=== PATIENT | female | born 1945 | race Caucasian/White ===

== ENCOUNTER 2023-01-13 10:08 | Outpatient (CLI) | payer MEDICARE, BC, SELFPAY ==
--- NOTE | 2023-01-13 10:30 | CRLHL7_ITS ---
For Patients: As a result of the Century Cures Act, medical imaging exams and procedure reports are released immediately into your electronic medical record. You may view this report before your referring provider. If you have questions, please contact your health care provider. INDICATION: LEFT CALF PAIN, LEFT KNEE PAIN COMPARISON: None. TECHNIQUE: A compression venous ultrasound exam was performed of the left lower extremity using goldsmith-scale imaging, color Doppler and spectral Doppler analysis. FINDINGS: Sonographic imaging of the left lower extremity demonstrates normal compressibility and color Doppler venous blood flow within the common femoral vein, deep femoral vein, and the proximal greater saphenous vein. Within the thigh, the femoral vein is patent and compressible. At a lower level, the popliteal and posterior tibial veins also show normal compressibility and color Doppler venous blood flow. Limited imaging of the contralateral groin demonstrates a normal spectral waveform and color Doppler venous blood flow within the right common femoral vein. IMPRESSION: Normal venous ultrasound exam. No evidence of deep vein thrombosis within the left lower extremity. Dictated by Uche Gann MD @ 01/13/2023 11:24:51 AM (Electronically Signed)
== END 2023-01-13 10:09 | disposition home or self-care (01) ==
LOC: US 10:12
PROVIDERS: PCP Nurse Practitioner Family; Visit Provider Physician Assistant
DX: M79.605 Pain in left leg; M25.562 Pain in left knee
CPT/HCPCS: 93926; 93971

== ENCOUNTER 2025-08-08 10:39 | Day surgery (SDC) | payer MEDICARE, BC, SELFPAY ==
[2025-08-08] VITALS (24 sets, daily range): BP systolic 96–153; BP diastolic 60–90; PULSE 61–90; RESP 13–18; TEMP 35.7–36.8; O2SAT 93–100; BMI 35.8
[2025-08-08] MEDS: LACTATED RINGERS 1000 ML 1,000 ML 100 ML IV ×3 (10:50→16:45)
[2025-08-08] MEDS: OXYCODONE (CR) 10 MG TAB.ER.12H PO (11:05)
[2025-08-08] MEDS: CELECOXIB 200 MG CAPSULE PO (11:05)
[2025-08-08] MEDS: ACETAMINOPHEN 500 MG TABLET 1000 MG PO ×2 (11:05→20:56)
[2025-08-08] MEDS: SODIUM CHLORIDE 0.9 % (FLUSH) 10 ML SYRINGE IVF (11:23)
--- NOTE | 2025-08-08 13:00 | CRLHL7_ITS ---
For Patients: As a result of the Cures Act, medical imaging exams and procedure reports are released immediately into your electronic medical record. You may view this report before your referring provider. If you have questions, please contact your health care provider. Indication: Hip replacement surgery Technique: AP hip fluoroscopic images. Fluoroscopy time 94.3 seconds. Findings/Impression: Hardware from a right total hip arthroplasty is in satisfactory position. Dictated by Uche Gann MD @ 08/09/2025 9:48:56 AM (Electronically Signed)
[2025-08-08] MEDS: MIDAZOLAM HCL 1 MG/ML inj IVP (13:10)
--- NOTE | 2025-08-08 13:18 | SUR.PREOP ---
TIME?OUT:?1310 PT/en dave RN/marcel humphries MDA?VERIFICATION?OF?SURGICAL?SITE,?PROCEDURE,?AND?CONSENT OBTAINED?PRIOR?TO?INVASIVE?PROCEDURE.
[2025-08-08] MEDS: TRANEXAMIC ACID 100 MG/ML INJ 1000 MG IV (14:40)
--- NOTE | 2025-08-08 14:51 | W.PM.NB ---
Nerve Block Nerve Block Time Seen by Provider: 13:10 Date Seen: 08/08/25 Side: right
--- NOTE | 2025-08-08 16:08 | CRLHL7_ITS ---
For Patients: As a result of the Cures Act, medical imaging exams and procedure reports are released immediately into your electronic medical record. You may view this report before your referring provider. If you have questions, please contact your health care provider. Indication: Postop right total hip arthroplasty. Technique: Right hip 2 views. Comparison: None. Findings/Impression: Bones/joint spaces: Interval placement of total right hip arthroplasty. No immediate hardware related complication. No inappropriate foreign bodies. Expected immediate postoperative intra-articular and periarticular emphysema and surrounding soft tissue swelling. Intact total left hip arthroplasty. No periprosthetic or additional fractures. No worrisome osseous lesions. Soft tissues: See above Other: Intrapelvic structures are normal. Dictated by Curt Garcia MD @ 08/15/2025 9:21:32 AM (Electronically Signed)
--- NOTE | 2025-08-08 16:11 | PM.ORPRC ---
Procedure Note Date of procedure: 08/08/25 Procedure: PREOPERATIVE DIAGNOSIS: Right hip osteoarthritis POSTOPERATIVE DIAGNOSIS: Right hip osteoarthritis NAME OF OPERATION: Right total hip arthroplasty SURGEON: Shad Mayen MD EMPLOYEE BENEFITS SPECIALIST: Renate Hernandez PA-C, JENNIFER Melo IMPLANTS: 1. J&J Walker # 48 sector ingrowth cup 2. 32 x 48 +4 neutral polyethylene 3. Actis #5 standard collared ingrowth stem 4. 32 + 5 cobalt chrome femoral head ANESTHESIA: Spinal ESTIMATED BLOOD LOSS: 500 cc COMPLICATIONS: None SPECIMENS: None DRAINS: None PREOPERATIVE ANTIBIOTICS: Ancef 2 g INDICATIONS: The patient is a 80-year-old with a longstanding history of severe, unrelenting right hip pain secondary to end-stage right hip osteoarthritis. Despite appropriate nonoperative management, including activity modification, use of an assist device, anti-inflammatories, [id number] pain medication, physical therapy and injections, they continue to have pain and disability. Operative intervention was offered. The risks, benefits and expected outcomes were discussed in detail. These included but were not limited to: Infection, bleeding, injury to blood vessel or nerve, venous thromboembolism. All questions were answered to their satisfaction. Use of an printer floor covering assistant was necessary throughout the case for patient positioning and safety, soft tissue retraction and closure. PROCEDURE: The patient was placed supine on the [place] table. Spinal anesthesia was administered. The printer floor covering assistant made sure the patient was properly positioned. The right hip was prepped and draped in the usual sterile fashion. The image intensifier was brought in for a perfect AP pelvis and a perfect double tear drop AP view of each hip which were used for intraoperative templating with our fluoroscopic guide. A bikini incision was made parallel to the hip flexion crease. The printer floor covering assistant retracted the soft tissues to protect them. Subcutaneous dissection was taken with electrocautery to the superficial fascia. The fascia was divided in line with the incision. Blunt dissection was carried medially to the tensor fascia peter and sartorius interval. Deep dissection was carried with electrocautery. The circumflex vessels were cauterized and divided. The capsule was exposed and then divided in a T-fashion, tagged with #1 FiberWire sutures. Retractors were placed in the joint, held by the printer floor covering assistant. The corkscrew was placed in the femoral head. The neck cut was made in the subcapital region. We made a second neck cut more distal. The napkin ring of bone was removed. The femoral head was removed intact. Acetabular retractors were placed, held by the printer floor covering assistant. The labrum was sharply debrided. The capsule was released. The 43 mm reamer was used to the true medial wall. We then enlarged in 2 mm increments using the image intensifier for our reamer placement. We impacted the cup which had excellent purchase. We placed the polyethylene. Attention was then turned to the proximal femur. The limb was placed in 140 degrees of external rotation, maximum extension and adduction. The capsule was released to allow us to deliver the femur into the wound and complete the femoral side. Retractors were held by the printer floor covering assistant throughout the femoral preparation. The hand box folder and canal finder were used. Broaches were used to a stable size. The calcar reamer was used. Trial components were placed. The hip was reduced and was found to be stable with appropriate soft tissue tension. Length and offset had been nicely restored using the image intensifier and our fluoroscopic guide. Trial components were removed. The stem was impacted. We placed the femoral head. Again, the hip was reduced and was found to be stable with appropriate soft tissue tension. Length and offset had been nicely restored. The printer floor covering assistant did a three minute dilute Betadine solution soak. The printer floor covering assistant irrigated the wound with 3 liters of normal saline via pulse lavage. The printer floor covering assistant repaired the anterior capsule with a #1 Vicryl and our previously placed Ethibond sutures. The printer floor covering assistant closed the fascia over the tensor fascia peter with a #1 PDO Stratafix, subcutaneous tissues with 2-0 Vicryl, skin with a running 3-0 Stratafix and glue. A dry dressing was applied by the printer floor covering assistant. Sponge and needle counts were correct x 2. The patient tolerated the procedure well; there were no apparent complications. They were awakened and extubated in the operating room, sent to the Post-Anesthesia Care Unit in satisfactory condition. PLAN: 1. The patient will be mobilized with physical therapy, weight-bearing as tolerates 2. Xarelto x 5 days then aspirin x 30 days will be used for DVT prophylaxis 3. The patient will be discharged once medically appropriate
--- NOTE | 2025-08-08 16:17 | PM.IMCN1 ---
Date of Consult Consult date: 08/08/25 Requesting Physician: Orthopedics Primary Care Provider: Claudia Roper PA-C Consult Narrative Narrative: HOSPITALIST CONSULT Procedure: Right total hip arthroplasty SURGEON: Shad Mayen MD ANESTHESIA: Spinal ESTIMATED BLOOD LOSS: 500 cc COMPLICATIONS: None SPECIMENS: None DRAINS: None The hospital medicine team was asked by the orthopedic surgery team to manage the patient's chronic pain; severe post op nausea/dizziness. She did not arrive from PACU until after 6 pm. There have been no perioperative complications other than her persistent nausea/dizziness. I have updated and reviewed the active medical problems, past medical history, past surgical history, social history, allergies and medications in our electronic EMR. This includes a cross reference to care everywhere in [facility] and with marker.to [facility] databases. PHYSICAL EXAM: CODE STATUS: FULL CODE CONSTITUTIONAL: Conversive, good historian. A/O. Knows setting and context. However she looks uncomfortable with her eyes covered and a the bear hugger keeping her warm. VITAL SIGNS: see record. HEENT: Normocephalic, atraumatic. PERRL, EOMI, conjunctivae pink, no scleral icterus. Ears and nose externally normal. Pharynx normal. NECK: No JVD. No carotid bruit, no thyromegaly, no adenopathy. CHEST: Clear to auscultation bilaterally HEART: S1 and S2 normal. ABDOMEN: Flat, soft, nontender. Normal bowel sounds. Moderately obese. EXTREMITIES: No edema. MUSCULOSKELETAL: right hip surgical dressing intact. NEURO: Cranial nerves intact - no facial droop or palsy. Mentation normal. Normal affect. No slurred speech. PERRL. no nystagmus. SKIN: No rashes, petechiae, concerning changes PSYCHIATRIC: Mentation normal. 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 - Leukoplakia of vulva (ICD-10) Chronic pain ?G89.29 - Other chronic pain (ICD-10) Venous insufficiency (chronic) (peripheral) ?I87.2 - Venous insufficiency (chronic) (peripheral) (ICD-10) Osteoporosis ?M81.0 - Age-related osteoporosis without current pathological fracture (ICD-10) Urine incontinence ?R32 - Unspecified urinary incontinence (ICD-10) Surgical History (Updated 08/08/25 @ 19:28 by Nettie Kerr MD) S/P total right hip arthroplasty ?Z96.641 - Presence of right artificial hip joint (ICD-10) History of left hip replacement ?Z96.642 - Presence of left artificial hip joint (ICD-10) Social History (Updated 08/08/25 @ 16:32 by Nettie Kerr MD) Narrative: She is and lives in [place]. She has a supportive family and friends who are willing to assist her post-surgery. She worked as a medical staff coordinator for over forty years Smoking Status: Never smoker How often do you have a drink containing alcohol: monthly or less AUDIT-C Alcohol total score: 1 Non-prescribed substance use: denies use Caffeine: Yes Meds Home Medications and Allergies Home Medications ?Medication ?Instructions ?Recorded ?Confirmed ?Type calcium 600 mg (as 1 tab PO DAILY 06/01/22 08/08/25 History carbonate)-vitamin D3 10 mcg (400 unit) tablet gabapentin 100 mg capsule 100 mg PO HS 06/01/22 08/08/25 History glucosamine-chondroitin 500 mg-400 1 cap PO DAILY 06/01/22 08/08/25 History mg capsule ibuprofen 800 mg tablet 800 mg PO .Daily as needed PRN 06/01/22 08/08/25 History Held on 08/08/25. Instructions: Resume on 08/14/25. pyridoxine (vitamin B6) 100 mg 100 mg PO DAILY 06/01/22 08/08/25 History tablet albuterol 90 mcg/actuation aerosol 90 mcg inhalation Q4-5H PRN 08/07/25 08/08/25 History inhaler estradiol 0.01% (0.1 mg/gram) 1 appful vaginal MOWEFR PRN 08/07/25 08/08/25 History vaginal cream fluticasone propionate 50 2 spray intranasal DAILY PRN 08/07/25 08/08/25 History mcg/actuation nasal spray,suspension (Allergy Relief (fluticasone)) sennosides 8.6 mg tablet 17.2 mg PO HS PRN 08/07/25 08/08/25 History acetaminophen 500 mg capsule 500 - 1,000 mg (1 - 2 x 500 mg) PO 08/08/25 Rx Q6H PRN pain #100 caps aspirin 81 mg chewable tablet 81 mg PO BID for DVT prophylaxis 08/08/25 Rx (Aspirin Childrens) 30 days #60 tabs clobetasol 0.05 % topical ointment 1 applic topical HS 08/08/25 08/08/25 History multivitamin (Daily Multi-Vitamin 1 tab PO DAILY 08/08/25 08/08/25 History tablet) oxycodone 5 mg tablet 2.5 - 5 mg (0.5 - 1 x 5 mg) PO 08/08/25 Rx Q4-6H PRN Pain #42 tabs rivaroxaban 10 mg tablet (Xarelto) 10 mg PO DAILY DVT prophylaxis 4 08/08/25 Rx days #4 tabs Allergies Allergy/AdvReac Type Severity Reaction Status Date / Time nortriptyline Allergy Severe Verified 08/08/25 10:58 tramadol Allergy Severe Verified 08/08/25 10:58 hydrocodone AdvReac Mild Nausea Verified 08/08/25 10:58 Exam Const: Vital Signs, click to edit/add: Vital Signs - 24 hr 08/08/25 11:15 08/08/25 13:10 08/08/25 13:15 Temperature 97.9 F Pulse Rate 83 82 71 Respiratory Rate 16 16 16 Blood Pressure 131/60 128/63 127/67 Pulse Oximetry 97 100 97 Oxygen Delivery Me thod Room Air Nasal Cannula Nasal Cannula Oxygen Flow Rate 3 3 Assessment and Plan Assessment and plan (1) S/P total right hip arthroplasty: Problem comment: Dr. Mayen; 08/08/25 Hospital medicine team is happy to follow the patient through to discharge. We are expecting a routine postoperative course. I have reconciled home medications and completed our part of the discharge. -continue acute vertigo care: 5HT3 antagonist + Dex + antihistamine. can consider droperidol if needed. -I will spot check oxygen sats as there is a concern for hypoxia as she is getting opioids and antihistamines Status: Acute (2) Acute onset of severe vertigo: Problem comment: assoc with nausea. zofran + antihistamine + dex can consider droperidol if this is ineffective Status: Acute (3) Chronic pain: Problem comment: takes a low dose gabapentin for chronic OA Status: Acute (4) Venous insufficiency (chronic) (peripheral): Problem comment: compression stockings are used at home Status: Acute (5) Osteoporosis: Status: Acute (6) Urine incontinence: Status: Acute
--- NOTE | 2025-08-08 17:05 | P.ANES_ITS ---
Anesthesia Charges Start Date/Time Anesthesia Start Date: 08/08/25 Anesthesia Start Time: 14:18 Stop Date/Time Anesthesia Stop Date: 08/08/25 Anesthesia Stop Time: 17:01 Summary Extremes of Age - Over 70 or under 1: CERTIFIED CODING SPECIALIST Coding CPT Codes CPT Codes: ANESTH HIP ARTHROPLASTY - 70443 ([id number]) P2 - PATIENT W/MILD SYST DISEASE, QK - AUTO DEALER 2-4 CNCRNT ANES PROC, QX - CERTIFIED CODING SPECIALIST SVC W/ MD MED DIRECTION Additional Codes: Summary - Extremes of Age - Over 70 or under 1: CERTIFIED CODING SPECIALIST ([id number])
--- NOTE | 2025-08-08 17:05 | W.ANESCHARGE ---
Anesthesia Charges Start Date/Time Anesthesia Start Date: 08/08/25 Anesthesia Start Time: 14:18 Stop Date/Time Anesthesia Stop Date: 08/08/25 Anesthesia Stop Time: 17:01 Summary Extremes of Age - Over 70 or under 1: TRAIN MASTER Coding CPT Codes CPT Codes: ANESTH HIP ARTHROPLASTY - 31262 ([id number]) P2 - PATIENT W/MILD SYST DISEASE, QK - PETROLEUM SAMPLER 2-4 CNCRNT ANES PROC, QX - TRAIN MASTER SVC W/ MD MED DIRECTION Additional Codes: Summary - Extremes of Age - Over 70 or under 1: TRAIN MASTER ([id number])
[2025-08-08] MEDS: ONDANSETRON 2 MG/ML inj 4 MG IVP (17:20)
[2025-08-08] MEDS: SENNOSIDES 1 TAB TABLET 2 TAB PO (20:59)
[2025-08-08] MEDS: CEFAZOLIN 2 GM in 0.9 % SODIUM CHLORIDE Mini-bag 100 ML IVPB (22:27)
--- NOTE | 2025-08-08 23:33 | PC.NURSE ---
end of shift: Pt. is AOx4. VSS. Pt. dizzy & nauseous upon arrival from the PACU. MD notified, see orders and EMAR. Anti-emetic given, pt. denied nausea after administration. Active ice applied. Tolerating regular diet. Tolerating oral fluids and PO pain meds. Pt. up to BR w/ SBA GB & walker. Voided x4. Family was bedside and supportive.; left at HS. Pain has been managed w/ meds and ice. Up to chair for supper. In bed for HS; call light within reach.
[2025-08-09] VITALS: O2SAT 93
[2025-08-09 00:05] VITALS: BP 112/71; PULSE 76; RESP 18; TEMP 36.8; O2SAT 95
[2025-08-09] MEDS: ACETAMINOPHEN 500 MG TABLET 1000 MG PO ×2 (01:25→06:52)
[2025-08-09 03:19] VITALS: BP 107/62; PULSE 88; RESP 16; TEMP 36.8; O2SAT 94
[2025-08-09] MEDS: CEFAZOLIN 2 GM in 0.9 % SODIUM CHLORIDE Mini-bag 100 ML IVPB (06:40)
[2025-08-09 07:00] VITALS: BP 116/70; PULSE 80; RESP 14; TEMP 36.9; O2SAT 947; O2SAT 97
--- NOTE | 2025-08-09 07:31 | PC.NURSE ---
Pt pleasant, alert, and oriented. Pain rated 2-4/10 throughout shift, managed with scheduled Tylenol and prn oxy. Ice pack to op site. Dressing C/D/I. SBA with 2WW and gait belt. Saline locked. R wrist IV appeared to have white medication not administered on the floor in extension tubing, used syringe and pulled back fluid. Pt appeared to be content, un-fatigued. Denies nausea and dizziness. Pt in bed, appears to be resting, call light within reach.?
--- NOTE | 2025-08-09 08:38 | PM.ORPN ---
Subjective Subjective Time Seen by Provider: 08:00 Date Seen: 08/09/25 Principal diagnosis: Day 1 s/p right JAY Interval history: Yelena is doing well this morning and is resting comfortably in her recliner. She c/o mild-moderate right hip pain that is well managed with current scheduled and PRN oral pain medications and ice. Denies: fever, chills, chest pain, SOB, numbness and tingling distally. She did report severe nausea last night, but explains this has resolved. Yelena has not yet had a bowel movement postoperatively, but admits to flatulence. She takes Senna daily at baseline. No acute events over night. Outpatient Physical Therapy is scheduled to begin next week . Ortho Exam Narrative Exam Narrative: Incision/Dressing: Dressing appears clean and dry. No drainage present. Mepilex intact. Right hip appears moderately swollen but supple with no obvious erythema, fluctuance or excessive warmth. Ecchymosis present near Mepilex margins. No erythematous streaking. Warmth around the wound is appropriate. Ice is being utilized as needed. CMS: Intact distally with 2+ Dorsalis pedis and Posterior Tibial pulses. 5/5 motor strength dorsal and plantar flexion. Confirmed sensation distally. Calf: Bilateral calves are supple, with no swelling, pain, tenderness, erythema, discoloration or coolness to the touch. Constitutional: Patient is alert and oriented x3. Patient is in no acute distress and converses without labored breathing. Patient is able to make decisions and demonstrates good insight. Patient is pleasant and cooperative. Affect is full range and appropriate for the circumstances Const Vital Signs, click to edit/add: Vital Signs - 24 hr 08/08/25 11:15 08/08/25 13:10 08/08/25 13:15 Temperature 97.9 F Pulse Rate 83 82 71 Pulse Rate [Pulse Oximeter] Respiratory Rate 16 16 16 Blood Pressure 131/60 128/63 127/67 Blood Pressure [Left Arm] Pulse Oximetry 97 100 97 Oxygen Delivery Method Room Air Nasal Cannula Nasal Cannula Oxygen Flow Rate 3 3 08/08/25 16:56 08/08/25 17:00 08/08/25 17:05 Temperature 97.9 F Pulse Rate 68 72 64 Pulse Rate [Pulse Oximeter] Respiratory Rate 16 14 16 Blood Pressure 96/61 96/62 112/71 Blood Pressure [Left Arm] Pulse Oximetry 94 93 95 Oxygen Delivery Method Room Air Oxygen Flow Rate 08/08/25 17:10 08/08/25 17:15 08/08/25 17:20 Temperature Pulse Rate 67 70 61 Pulse Rate [Pulse Oximeter] Respiratory Rate 16 15 16 Blood Pressure 116/61 111/71 124/69 Blood Pressure [Left Arm] Pulse Oximetry 97 97 97 Oxygen Delivery Method Oxygen Flow Rate 08/08/25 17:25 08/08/25 17:30 08/08/25 17:35 Temperature 96.9 F L Pulse Rate 66 71 64 Pulse Rate [Pulse Oximeter] Respiratory Rate 13 14 15 Blood Pressure 124/75 128/73 128/65 Blood Pressure [Left Arm] Pulse Oximetry 96 98 97 Oxygen Delivery Method Oxygen Flow Rate 08/08/25 17:45 08/08/25 17:45 08/08/25 18:00 Temperature 96.3 F L 96.3 F L Pulse Rate 67 Pulse Rate [Pulse Oximeter] 67 68 Respiratory Rate 14 14 14 Blood Pressure 138/78 Blood Pressure [Left Arm] 138/78 135/69 Pulse Oximetry 96 96 97 Oxygen Delivery Method Room Air Room Air Room Air Oxygen Flow Rate 08/08/25 18:15 08/08/25 18:30 08/08/25 18:45 Temperature 96.3 F L Pulse Rate Pulse Rate [Pulse Oximeter] 71 73 76 Respiratory Rate 14 16 16 Blood Pressure Blood Pressure [Left Arm] 153/83 H 134/90 H 142/76 H Pulse Oximetry 98 100 99 Oxygen Delivery Method Room Air Room Air Room Air Oxygen Flow Rate 08/08/25 19:15 08/08/25 19:45 08/08/25 21:00 Temperature Pulse Rate Pulse Rate [Pulse Oximeter] 76 81 90 Respiratory Rate 16 Blood Pressure Blood Pressure [Left Arm] 135/70 139/75 142/76 H Pulse Oximetry 98 98 99 Oxygen Delivery Method Room Air Room Air Room Air Oxygen Flow Rate 08/08/25 21:30 08/08/25 22:30 08/08/25 23:05 Temperature 98.3 F 98.0 F Pulse Rate Pulse Rate [Pulse Oximeter] 87 90 76 Respiratory Rate 18 16 Blood Pressure Blood Pressure [Left Arm] 137/75 134/72 110/63 Pulse Oximetry 97 96 93 Oxygen Delivery Method Room Air Room Air Room Air Oxygen Flow Rate 08/08/25 23:50 08/09/25 00:00 08/09/25 00:05 Temperature 98.2 F Pulse Rate Pulse Rate [Pulse Oximeter] 82 76 Respiratory Rate 18 18 Blood Pressure Blood Pressure [Left Arm] 112/71 Pulse Oximetry 93 95 Oxygen Delivery Method Room Air Room Air Oxygen Flow Rate 08/09/25 03:19 08/09/25 07:00 08/09/25 07:00 Temperature 98.3 F Pulse Rate Pulse Rate [Pulse Oximeter] 88 80 Respiratory Rate 16 14 14 Blood Pressure Blood Pressure [Left Arm] 107/62 Pulse Oximetry 94 947 H Oxygen Delivery Method Room Air Room Air Oxygen Flow Rate 08/09/25 07:00 Temperature 98.4 F Pulse Rate Pulse Rate [Pulse Oximeter] Respiratory Rate 14 Blood Pressure Blood Pressure [Left Arm] 116/70 Pulse Oximetry 97 Oxygen Delivery Method Room Air Oxygen Flow Rate Assessment and Plan Assessment and plan (1) S/P total right hip arthroplasty: Problem details: Dr. Mayen; 08/08/25 Status: Acute Assessment and Plan: - Complete 23 hour perioperative antibiotics. - PT/OT consults for education and assistance. Outpatient physical therapy scheduled to begin next week . - Weight bear as tolerated with a walker for assistance. - Prescribed analgesics as needed. Patient is content with current narcotic medications. Minimize narcotic pain medication use; wean off and discontinue as soon as possible. - DVT prophylaxis: Xarelto 10 mg daily x 5 days followed by aspirin 81 mg BID x 30 days. Also, frequent ambulation and ankle pumps when sedentary. - Social consult for discharge planning. - Anticipate patient will be discharged to home later today if the patient remains medically stable, pain is controlled and is safe with ambulation. - Follow-up with Renate De Los Santos PA-C on 08/21/25. - Return to clinic in [address] Mayen - Phone Orthopedics with any questions or concerns. [phone]
[2025-08-09] MEDS: SENNOSIDES 1 TAB TABLET 2 TAB PO (09:29)
[2025-08-09] MEDS: RIVAROXABAN 10 MG TABLET PO (09:29)
--- NOTE | 2025-08-09 11:27 | PC.NURSE ---
Discharge: patient pleasant and cooperative, VSS, on RA tolerating a reg diet. Premedicated Prior to therapy. rates pain 2/10 denies N/V/SOB. Patient using active ice to OP site, dressing is C/D/I. ambulating to BR and voiding well. Patient reports passing gas. Patient discharged to home today at 1105 accompanied by spouse and dtr. IV removed tip intact. Discharge instructions given and signed, patient verbalized understanding of instructions.
--- NOTE | 2025-08-22 11:33 | W.PM.NB ---
Nerve Block Nerve Block Time Seen by Provider: 13:10 Date Seen: 08/08/25 Type of block requested by surgeon for post-operative analgesia: YAHAIRA/LFCN Side: right Time out performed: Yes Verification of patient name: Yes Verification of date of : Yes Site marking: site marked Name of person performing procedure: Cruzito Continuous monitoring Was continuous monitoring of O2 sat, B/P, radiographer cardiac catheterization, recorded every 15 minutes?: Yes Procedure Checklist: sterile prep, needles and gloves Ultrasound guided. Images saved: Yes Medications given in 5ml increments after negative aspiration: Ropivicaine %: 0.5 mL: 30 Needle gauge: 20 Precedex (mcg): 25 Patient tolerated procedure well: Yes Additional comments: Needle noted below psoas tendon needle noted adjacent to LFCN Block Charges Block Charge (with Pro Fee): Other Periph Nerve Block Use of Ultrasound Machine for Block: Yes- US Guidance/pain block
== END 2025-08-09 11:05 | disposition home or self-care (01) ==
LOC: OR 10:44 → MEDSURG 10:45
PROVIDERS: PCP Internal Medicine; Visit Provider Orthopaedic Surgery
PROC: (CPT 27130; principal; 2025-08-08 13:00)
DX: M16.11 Unilateral primary osteoarthritis, right hip (principal); G89.18 Other acute postprocedural pain; R42 Dizziness and giddiness; R11.0 Nausea; M81.0 Age-related osteoporosis without current pathological fracture; G89.29 Other chronic pain; I87.2 Venous insufficiency (chronic) (peripheral); R09.02 Hypoxemia; R32 Unspecified urinary incontinence
CPT/HCPCS: 27130; 01214; 36415; 64450; 73501; 76000; 76942; 86850; 86900; 86901; 97110; 97116; 97161; 97165; 97530; 97535; 99100; A9270; C1776; J0690; J1100; J2250; J2371; J2405; J2550; J2704; J3010; J7120